=== PATIENT | male | born 1950 | race Caucasian/White ===

== ENCOUNTER 2021-07-09 13:41 | Outpatient (CLI) | payer MEDICARE | END 2021-07-09 13:42 | disposition home or self-care (01) | LOC: CSHMRI 13:41 | PROVIDERS: ATTEND Orthopaedic Surgery | DX: M24.811 Other specific joint derangements of right shoulder, not elsewhere classified (principal); M75.101 Unspecified rotator cuff tear or rupture of right shoulder, not specified as traumatic; M25.411 Effusion, right shoulder; M19.011 Primary osteoarthritis, right shoulder ==

== ENCOUNTER 2022-10-25 08:57 | Outpatient (CLI) | payer OTHER ==
[2022-10-25] MEDS ORDERED: Magnevist 469MG/ML 20 ML VIAL ONE (10:18)
== END 2022-10-25 08:58 | disposition home or self-care (01) ==
LOC: CSHMRI 08:57
PROVIDERS: ATTEND Urology
DX: C61 Malignant neoplasm of prostate (principal)
CPT/HCPCS: 72197

== ENCOUNTER 2022-12-17 13:00 | Outpatient (CLI) | payer OTHER ==
[~2022-12-17 13:00] MED LIST: Iopamidol 370 76% 100 ML VIAL ONE
== END 2022-12-17 13:01 | disposition home or self-care (01) ==
LOC: CSHCT 13:00
PROVIDERS: ATTEND Internal Medicine Cardiovascular Disease
DX: Z01.810 Encounter for preprocedural cardiovascular examination (principal); R00.0 Tachycardia, unspecified
CPT/HCPCS: 71275; 82565